=== PATIENT | male | born 1985 | race African-American/Black ===

== ENCOUNTER 2018-01-12 02:52 | Emergency (ER) | payer SELFPAY ==
[2018-01-12] MEDS ORDERED: ONDANSETRON 4 MG TAB.RAPDIS PO ONE (03:44)
--- NOTE | 2018-01-12 03:46 | ER Document Report ---
HPI - HPI Pain Level: 3 Context: Patient is a 32-year-old male comes emergency department for chief complaint of cough which is nonproductive that started this morning, mildly sore throat, body aches, he also states he vomited twice this afternoon. He states he thinks he had chills earlier, unsure of fever. He denies any current areas of pain, he denies shortness of breath, denies dizziness, headache, passing out. He smokes cigarettes, denies any drug use, denies any daily medications. He states his only past medical history is he had back surgery after an injury. Past Medical History - General Information source: Patient - Social History Smoking Status: Current Every Day Smoker Smoking Education Provided: Yes - <3 min Frequency of alcohol use: None Drug Abuse: None Lives with: Alone Family History: Reviewed & Not Pertinent - Past Medical History Cardiac Medical History: Reports: Hx Hypertension Pulmonary Medical History: Reports: Hx Asthma Past Surgical History: Reports: Hx Orthopedic Surgery - 2001 - fusion of lumbar spine - Immunizations Hx Diphtheria, Pertussis, Tetanus Vaccination: Yes Vertical Provider Document - CONSTITUTIONAL General Appearance: WD/WN, No Apparent Distress - INFECTION CONTROL TRAVEL OUTSIDE OF THE [place] IN LAST 30 DAYS: No - HEENT HEENT: Atraumatic, Normal ENT Exam, Normocephalic - NECK Neck: Normal Inspection - RESPIRATORY Respiratory: Breath Sounds Normal, No Respiratory Distress, Other - occassional mild cough O2 Sat by Pulse Oximetry: 99 - CARDIOVASCULAR Cardiovascular: Regular Rate, Regular Rhythm - GI/ABDOMEN Gastrointestinal: Abdomen Soft, Abdomen Non-Tender. negative: Abdomen Tender - Completely soft and nontender abdomen - BACK Back: Normal Inspection - MUSCULOSKELETAL/EXTREMETIES Musculoskeletal/Extremeties: MAEW, FROM, Non-Tender - NEURO Level of Consciousness: Awake, Alert, Appropriate - DERM Integumentary: Warm, Dry, No Rash Course - Re-evaluation Re-evalutation: Chest x-ray unremarkable. Blood glucose checked to make sure patient is not an undiagnosed diabetic with vomiting. This was normal. Patient examination is very unremarkable with mild cough. Unremarkable vital signs. Patient declines testing for influenza. After Zofran patient states he feels much better and he is ready to leave. Tolerating p.o. without any difficulty. Could be viral because of multiple symptoms, provided with work release, [employer] [place], discussed follow-up and return precautions. Patient states understanding and agreement. - Vital Signs Vital signs: Temp Pulse Resp BP Pulse Ox 98.3 F 86 18 143/93 H 99 01/12/18 02:58 01/12/18 02:58 01/12/18 02:58 01/12/18 02:58 01/12/18 02:58 Discharge - Discharge Clinical Impression: Cough, Chills, Body aches Nausea and vomiting Qualifiers: Vomiting type: unspecified Vomiting Intractability: non-intractable Qualified Code(s): R11.2 - Nausea with vomiting, unspecified Condition: Stable Disposition: HOME, SELF-CARE Additional Instructions: Your chest x-ray is normal, your blood glucose is normal. Your examination and symptoms are most suggestive of viral illness. Take the Phenergan if needed for nausea, take the Tessalon if needed for cough, take Tylenol or ibuprofen for chills and body aches. Rest and drink plenty of fluids. This should resolve on its own. Follow-up with primary care. Return for any concerning or worsening symptoms including difficulty breathing, uncontrolled vomiting, spiking fever, or any other concerning or worsening symptoms. Prescriptions: Benzonatate [Tessalon Perle 100 mg Capsule] 100 mg PO Q8HP PRN #20 cap PRN Reason: Promethazine HCl [Phenergan 25 mg Tablet] 1 - 2 tab PO Q6H PRN #15 tablet PRN Reason: Forms: Return to Work
--- NOTE | 2018-01-12 04:23 | RADIOLOGY REPORT (SQ) ---
EXAM DESCRIPTION: CHEST PA/LAT CLINICAL HISTORY: 32 years, Male, chest pain COMPARISON: None. NUMBER OF VIEWS: 2 FINDINGS: Normal lung volume, clear parenchyma, normal cardiac silhouette, and intact bony thorax. IMPRESSION: No acute cardiopulmonary findings.
[2018-01-12] MEDS ORDERED: ONDANSETRON ODT 4 MG TAB (6 TAB/ER DISP) PO PRN (05:05)
[2018-01-12 05:19] VITALS: BP 123/79
--- NOTE | 2018-01-12 09:29 | EKG REPORT ---
SEVERITY:- BORDERLINE ECG - SINUS RHYTHM BORDERLINE T ABNORMALITIES, ANTERIOR LEADS : Confirmed by: Rivas Nolan MD 12-Jan-2018 09:27:36
== END 2018-01-12 05:19 | disposition home or self-care (01) ==
LOC: ER 02:52
DX: R05 Cough (principal); R11.2 Nausea with vomiting, unspecified; R52 Pain, unspecified; J02.9 Acute pharyngitis, unspecified; I10 Essential (primary) hypertension; J45.909 Unspecified asthma, uncomplicated; F17.210 Nicotine dependence, cigarettes, uncomplicated; Z71.6 Tobacco abuse counseling
CPT/HCPCS: 93005; 99284; 82962; 71046; 93010; S0119